=== PATIENT | female | born 1995 ===

== ENCOUNTER 2020-06-22 09:00 | Outpatient (RCR) | payer OTHER, SELFPAY ==
--- NOTE | 2020-04-08 13:36 | PTOPEVAL ---
PHYSICAL THERAPY EVALUATION AND PLAN OF CARE 04-08-2020 Thank you for referring Farooq Tapia to [facility], for treatment of the diagnosis of low back pain with .? She is scheduled to be seen for therapy? 1-2 x/week for 6 weeks. Please review, sign, date and return this plan of care AVIVA. The range of 1-2x/week is to be used for progression of her home exercises, and to assess her treatment as progresses. I agree with and certify that the following plan of care is medically necessary. Referring Physician Date Attending Provider: Dr. Francie Barry *PT Outpatient Evaluation Document 04/08/20 12:35 DAGO (Rec: 04/08/20 13:35 DAGO [id number]) Therapy Assessment Status Assessment Status Assessment Status Evaluation Outpatient Past Medical History Past Medical History Source of Past Medical History Patient Neurological History Hx Neurological Disorders No Significant History Cardiovascular History Hx Cardiac Disorders No Significant History Respiratory History Hx Respiratory Disorders No Significant History Gastrointestinal History Hx Gastroesophageal Reflux Disease Yes: not taking any meds; monitoring diet Genitourinary History Hx Genitourinary Disorders No Significant History Musculoskeletal History Hx Back Pain Yes: 2014; Hematological History Hx Hematological Disorders No Significant History Endocrine History Hx Endocrine Disorders No Significant History HEENT History Hx HEENT Disorders No Significant History Reproductive History Hx Other Reproductive Disorders Yes: is currently 4 months , due date October Evaluation Information Problem Diagnosis low back pain, increased with Onset Subjective Information no fall or trauma to back, Query Text:As Reported By Patient/ gradually worse with Family Previous Treatments Previous Treatments For This Problem no previous PT for back; previous chiropractor treat- did not help pain Prior Level of Function Activity Level (Last 3 Months) Occupation data security administrator and inspect trucks; full work duty- walking/ sitting/ no lifting Activity of Daily Living Ability Independent Indoor/Home Mobility Independent Community Mobility Independent Stairs Ability Independent Functional Cognition (Planning, Shopping Independent , Taking Medications) Cooking Yes Cleaning Yes Laundry Yes Shopping Yes Driving Yes Home Setting Home
--- NOTE | 2020-04-15 09:06 | PCPTNOTE ---
Patient called & cancelled scheduled appointment this date due to not feeling well.
--- NOTE | 2020-05-13 08:55 | PCPTNOTE ---
Patient called & cancelled scheduled appointment this date due to being exposed to someone with COVID.
--- NOTE | 2020-05-20 10:46 | PCPTNOTE ---
pt did not show for today's reevaluation; called her and she thought appt was tomorrow. Due to her work and limited schedule availability, reeval was rescheduled for Jun 03;
--- NOTE | 2020-06-03 11:55 | PTOPEVAL ---
PHYSICAL THERAPY RE-EVALUATION AND UPDATED PLAN OF CARE 06-03-2020 Refer to the clinical summary below, for the comparison of her status from the initial evaluation to today's reevaluation. Therapy is to continue 1x/week for 6 weeks. seven you for referring Farooq Tapia to [facility] [place] Please review, sign, date and return this updated plan of care [facility]. I agree with and certify that the following plan of care is medically necessary. Referring Physician Date Attending Provider: Dr. 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 doing OK with it ; pain has shifted from R to L side; have been doing exercises at home; tried back brace and pain was worse; Pain Assessment Timing of Pain Assessment Timing of Pain Assessment Assessment Pain Scale Pain Scale Used Numeric (1 - 10) Self Report Pain Assessment Bilateral Back Reported Pain Level 5 Pain Description Dull,Sharp Pain Radiation Left Leg Pain Frequency Chronic,Continuous Other Pain Description sharp L sacrum; L anterior hip pain Lowest Pain Intensity 0 Greatest Pain Intensity 10 Pain Aggravating Factors Weight Bearing/Standing Other Pain Aggravating Factors standing tolerance 1 hr/ varies;with sleeping awaken 3- 4x/night Additional Pain Comments problems getting comfortable to go to sleep-usually on L side Pain Score Pain Score 5: Self Report Additional Pain Score Comments have not had to call off work due to pain; walking helps back pain; sleep 3-4 hours at time self assessment functional score Oswestry 48% limitation tried back- brace and did not help, make pain worse---she applied and had the top abdominal strap very tight- instruct to decrease tightness and reports lower strap of belt digs into her legs at work with sitting; tried to elevate strap slghtly or fold up to prevent;
--- NOTE | 2020-06-30 15:42 | PCPTNOTE ---
This treatment is being continued on visit number [id number] Please see documentation on both accounts to view progress. Completed interventions, outcomes, and problems have been marked as Inactive to facilitate the copying of the Care plan routine for recurring accounts.
== END 2020-06-30 08:21 | disposition home or self-care (01) ==
LOC: ANHPT 09:00
DX: M54.5 Low back pain (principal)
CPT/HCPCS: 97110; 97140; 97161

== ENCOUNTER 2020-07-13 11:00 | Outpatient (RCR) | payer OTHER, SELFPAY ==
--- NOTE | 2020-06-30 15:45 | PCPTNOTE ---
This treatment is being continued from previous visit number [id number] Please see documentation on both accounts to view progress. Completed interventions, outcomes, and problems have been marked as Inactive to facilitate the copying of the Care plan routine for recurring accounts.
--- NOTE | 2020-07-01 11:08 | PCPTNOTE ---
Patient called & cancelled scheduled appointment this date due to no transportation.
--- NOTE | 2020-07-08 14:39 | PCPTNOTE ---
pt did not show for today's appt
--- NOTE | 2020-07-13 11:43 | PTOPEVAL ---
PHYSICAL THERAPY DISCHARGE 07-13-2020 Refer to clinical summary below for her status and comparison to initial evaluation. Thank you for referring Farooq Tapia to [facility]. Please review, sign, date and return this discharge [facility]IVA. I agree with and certify that the following plan of care is medically necessary. Referring Physician Date Attending Provider: Dr. 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; doing exercises, but bridging one now makes back pain worse, so not doing; Oswestry self assesment 30% limitation; Pain Assessment Timing of Pain Assessment Timing of Pain Assessment Assessment Pain Scale Pain Scale Used Numeric (1 - 10) Self Report Pain Assessment Bilateral Back Reported Pain Level 2 Pain Frequency Chronic Other Pain Description over sacrum Lowest Pain Intensity 2 Greatest Pain Intensity 7 Pain Aggravating Factors Prolonged Position Pain Score Pain Score 2: Self Report Interventions Used Interventions Used By Clinicians Education,Exercise Pain Relief Interventions Used By Position Change Patient Other Alleviating Interventions elevate legs Lower Extremity Range of Motion General Lower Extremity Range of Motion Gross Lower Extremity Range of Motion supine: R and L knee/chest Comments without pain increase; piriformis stretch R and L- reports equal stretch; Lower Extremity Muscle Strength Testing General Lower Extremity Strength Gross Lower Extremity Strength side lying R and L: hip abduction x 20 and clamshell/ hip ER x 20 reps sitting on ball: R and L hip flexion, knee extension, alt arm/leg lift x 20 reps; pelvic circles and hamstring stretch
== END 2020-09-14 11:37 | disposition home or self-care (01) ==
LOC: ANHPT 11:00
DX: M54.5 Low back pain (principal)
CPT/HCPCS: 97110

== ENCOUNTER 2020-07-28 09:34 | Outpatient (RCR) | payer OTHER, SELFPAY ==
[2020-07-28 09:47] VITALS: BMI 43.5
[2020-07-28 09:48] VITALS: BMI 43.5
== END 2020-10-12 09:58 | disposition home or self-care (01) ==
LOC: ANHDMC 09:34
DX: E66.9 Obesity, unspecified (principal); Z71.3 Dietary counseling and surveillance
CPT/HCPCS: 97802